=== PATIENT | male | born 1995 | race Caucasian/White ===

== ENCOUNTER 2017-09-04 11:18 | Emergency (ER) | payer OTHER ==
[~2017-09-04] VITALS: Ht 195.6 cm; Wt 127.0 kg
[2017-09-04 11:18] VITALS: BP 155/86
[~2017-09-04 11:18] MED LIST: IBUP800T19 PO; OXYC1TAB7 PO; SULF1TAB24 PO
--- NOTE | 2017-09-04 11:57 | PHYS DOC ---
Past History Past Medical History: No Pertinent History, Other Past Surgical History: No Surgical History, Other Smoking: Non-smoker Alcohol Use: None Drug Use: None Adult General Chief Complaint Chief Complaint: LACERATION/AVULSION HPI HPI 21-year-old male patient states he accidentally hit his forehead against gutter when tried to put [place] light . Patient denies other injuries or loss of consciousness. Patient is up-to-date with his immunization. Review of Systems Review of Systems Constitutional: Denies fever or chills [] Eyes: Denies change in visual acuity, redness, or eye pain [] HENT: Denies nasal congestion or sore throat [] Respiratory: Denies cough or shortness of breath [] Cardiovascular: No additional information not addressed in HPI [] GI: Denies abdominal pain, nausea, vomiting, bloody stools or diarrhea [] : Denies dysuria or hematuria [] Musculoskeletal: Denies back pain or joint pain [] Integument: Denies rash or skin lesions, reports laceration [] Neurologic: Denies headache, focal weakness or sensory changes [] Endocrine: Denies polyuria or polydipsia [] All other systems were reviewed and found to be within normal limits, except as documented in this note. Allergies Allergies Allergies Coded Allergies Type Severity Reaction Last Updated Verified No Known Drug Allergies 10/21/14 No Physical Exam Physical Exam Constitutional: Well developed, well nourished, mild distress, non-toxic appearance. [] HENT: Normocephalic, bilateral external ears normal, oropharynx moist, no oral exudates, nose normal. 2 centimeters curved and superficialis laceration in right side of forehead without active bleeding] Eyes: PERRLA, EOMI, conjunctiva normal, no discharge. [] Neck: Normal range of motion, no tenderness, supple, no stridor. [] Cardiovascular:Heart rate regular rhythm, no murmur [] Lungs & Thorax: Bilateral breath sounds clear to auscultation [] Abdomen: Bowel sounds normal, soft, no tenderness, no masses, no pulsatile masses. [] Skin: Warm, dry, no erythema, no rash. [] Back: No tenderness, no CVA tenderness. [] Extremities: No tenderness, no cyanosis, no clubbing, ROM intact, no edema. [] Neurologic: Alert and oriented X 3, normal motor function, normal sensory function, no focal deficits noted. [] Psychologic: Affect normal, judgement normal, mood normal. [] EKG EKG [] Radiology/Procedures Radiology/Procedures [] Dragon Disclaimer Dragon Disclaimer This electronic medical record was generated, in whole or in part, using a voice recognition dictation system. - 1145: 2 cm superficial laceration of forehead was cleaned with normal saline and Dermabond and Steri-Strip was applied. Patient tolerated procedure well. Departure Departure: Impression: Primary Impression: Forehead laceration Disposition: 01 HOME, SELF-CARE (At 1154) Condition: IMPROVED Referrals: JAKE GOMEZ MD (PCP) Patient Instructions: Laceration Care, Adult, Tissue Adhesive Wound Care Additional Instructions: May take [id number] Tylenol and ibuprofen for pain Follow-up with your primary care physician as needed JULIANNE NOBLE MD Sep 04, 2017 11:56
== END 2017-09-04 12:02 | disposition home or self-care (01) ==
LOC: ER 11:18
DX: S01.81XA Laceration without foreign body of other part of head, initial encounter (principal); W22.8XXA Striking against or struck by other objects, initial encounter; Y93.89 Activity, other specified; Y99.8 Other external cause status; Y92.89 Other specified places as the place of occurrence of the external cause
CPT/HCPCS: 12011; 99283-25

== ENCOUNTER 2019-03-31 09:58 | Emergency (ER) | payer OTHER ==
[~2019-03-31] VITALS: Ht 193 cm; Wt 131.5 kg
[2019-03-31 10:08] VITALS: BP 139/73
[2019-03-31] MEDS ORDERED: PRED20TA PO (10:26)
[2019-03-31] MEDS ORDERED: CIPR7.5D AS (10:26)
[2019-03-31] MEDS ORDERED: CIPR500T94 PO (10:26)
--- NOTE | 2019-03-31 10:26 | PHYS DOC ---
Past History Past Medical History: No Pertinent History, Other Past Surgical History: Other Smoking: Non-smoker Alcohol Use: Occasionally Drug Use: None Adult General Chief Complaint Chief Complaint: EARACHE/EAR PAIN HPI HPI Patient is a 23-year-old male who presents with complaint of left ear pain that started on Thursday. He was seen at [facility] on Thursday and was prescribed Zithromax for an ear infection. He was told by the doctor at [facility] that pharmaceutical companies no longer make the drops. Patient indicates that he has having worsening symptoms and now has muffled hearing out of that ear. He also noted some bloody drainage from the ear. Patient reports that this all started after going swimming [place].[] Review of Systems Review of Systems Constitutional: Denies fever or chills [] HENT: Positive left ear pain[] Respiratory: Denies cough or shortness of breath [] Cardiovascular: No additional information not addressed in HPI [] Integument: Denies rash or skin lesions [] Current Medications Current Medications Current Medications Medications (Trade) Dose Ordered Sig/Shameka Start Time Stop Time Status Last Admin Dose Admin Ciprofloxacin (Cipro) 500 mg 1X ONCE 03/31/19 10:40 03/31/19 10:41 Dexamethasone Sodium Phosphate (Decadron) 20 mg 1X ONCE 03/31/19 10:40 03/31/19 10:41 Allergies Allergies Allergies Coded Allergies Type Severity Reaction Last Updated Verified Sulfa (Sulfonamide Antibiotics) Allergy Unknown 03/31/19 Yes cephalexin Allergy Unknown 03/31/19 Yes Physical Exam Physical Exam Constitutional: Well developed, well nourished, no acute distress, non-toxic appearance. [] HENT: Normocephalic, atraumatic, left otic canal demonstrates significant swelling and redness. Unable to visualize left TM due to significance of swelling of the canal. [] Cardiovascular:Heart rate regular rhythm, no murmur [] Lungs & Thorax: Bilateral breath sounds clear to auscultation [] Current Patient Data Vital Signs Vital Signs Date Time Temp Pulse Resp B/P (MAP) Pulse Ox O2 Delivery O2 Flow Rate FiO2 03/31/19 10:08 98.2 66 16 97 Room Air EKG EKG [] Radiology/Procedures Radiology/Procedures [] Course & Med Decision Making Course & Med Decision Making Pertinent Labs and Imaging studies reviewed. (See chart for details) [] Dragon Disclaimer Dragon Disclaimer This electronic medical record was generated, in whole or in part, using a voice recognition dictation system. Departure Departure: Impression: Primary Impression: Otitis externa Disposition: 01 HOME, SELF-CARE Condition: STABLE Referrals: PCP,UNKNOWN (PCP) Patient Instructions: Otitis Externa Scripts Prednisone (PREDNISONE) 20 Mg Tablet 3 TAB PO DAILY for inflammation for 5 Days, #15 TAB Prov: ROBE EDUARDO Jr. DO 03/31/19 Ciprofloxacin Hcl (CIPRO) 500 Mg Tablet 1 TAB PO BID for infection, #20 TAB Prov: ROBE EDUARDO Jr. DO 03/31/19 Ciprofloxacin Hcl/Dexameth (CIPRODEX OTIC SUSPENSION) 7.5 Ml Drops.susp 4 DROP BID for infection, #7.5 ML Prov: ROBE EDUARDO Jr. DO 03/31/19 Problem Qualifiers Primary Impression: Otitis externa Otitis externa type: unspecified type Chronicity: acute Laterality: left Qualified Codes: H60.502 - Unspecified acute noninfective otitis externa, left ear ROBE EDUARDO Jr. DO Mar 31, 2019 10:26
[2019-03-31] MEDS ORDERED: DEXAMETHASONE SOD PHOS 10 MG/ML VIAL IM ONE (10:40)
[2019-03-31] MEDS ORDERED: CIPROFLOXACIN HCL 500 MG TABLET PO ONE (10:40)
== END 2019-03-31 10:35 | disposition home or self-care (01) ==
LOC: ER 09:58
DX: H60.502 Unspecified acute noninfective otitis externa, left ear (principal); Z88.2 Allergy status to sulfonamides; Z88.1 Allergy status to other antibiotic agents
CPT/HCPCS: 96372; 99283; J1100